=== PATIENT | female | born 1975 | race African-American/Black ===

== ENCOUNTER 2025-02-16 05:00 | Emergency (ER) | payer MEDICAID ==
[~2025-02-16] VITALS: Ht 170.2 cm; Wt 68.0 kg
[2025-02-16 05:12] VITALS: O2SAT 97
[2025-02-16 05:17] VITALS: BP 112/70; PULSE 68; RESP 19; TEMP 36.9; O2SAT 97
[2025-02-16] MEDS ORDERED: DIPHENHYDRAMINE 50MG CAPSULE PO ONE (06:15)
[2025-02-16] MEDS ORDERED: DIPH50CA41 MT (06:19)
[2025-02-16] MEDS ORDERED: P50 MT (06:19)
[2025-02-16] MEDS: DEXAMETHASONE 10 MG/ML VIAL IM ONE (06:30)
[2025-02-16] MEDS: DIPHENHYDRAMINE 25MG CAPSULE PO NR (06:31)
== END 2025-02-16 06:52 | disposition home or self-care (01) ==
LOC: ER 05:00
DX: L23.9 Allergic contact dermatitis, unspecified cause (principal); Z88.0 Allergy status to penicillin
CPT/HCPCS: 99283; 96372; Q0163; J1100

== ENCOUNTER 2025-08-07 08:06 | Emergency (ER) | payer MEDICAID ==
[~2025-08-07] VITALS: Ht 167.6 cm; Wt 66.0 kg
[~2025-08-07 08:06] MED LIST: DIPH50CA41 MT; P50 MT
[2025-08-07 08:09] VITALS: O2SAT 97
[2025-08-07 08:13] VITALS: BP 110/77; PULSE 86; RESP 18; TEMP 36.7; O2SAT 95
[2025-08-07] MEDS ORDERED: TOPUD PO (09:28)
[2025-08-07] MEDS ORDERED: IBUP-2028 MT (09:28)
[2025-08-07] MEDS ORDERED: ACETAMINOPHEN 325MG TABLET PO ONE (09:30)
[2025-08-07] MEDS ORDERED: IBUPROFEN 400MG TABLET PO ONE (09:30)
== END 2025-08-07 09:40 | disposition home or self-care (01) ==
LOC: ER 08:06
DX: M25.571 Pain in right ankle and joints of right foot (principal); Z79.899 Other long term (current) drug therapy; Z88.0 Allergy status to penicillin; W22.8XXA Striking against or struck by other objects, initial encounter; Y93.89 Activity, other specified; Y92.89 Other specified places as the place of occurrence of the external cause; Y99.8 Other external cause status
CPT/HCPCS: 99283; 73600; A6449

== ENCOUNTER 2025-11-24 16:05 | Emergency (ER) | payer MEDICAID ==
[~2025-11-24] VITALS: Ht 165.1 cm; Wt 68.0 kg
[~2025-11-24 16:05] MED LIST changes: +IBUP-2028 MT; +TOPUD PO
[2025-11-24 16:18] VITALS: O2SAT 99
[2025-11-24] MEDS: AZITHROMYCIN 500 MG TABLET PO ONE (18:25)
[2025-11-24] MEDS: IBUPROFEN 400MG TABLET PO ONE (18:26)
[2025-11-24] MEDS: PREDNISONE 20MG TABLET PO ONE (18:26)
[2025-11-24 18:32] VITALS: PULSE 80; RESP 18
[2025-11-24] MEDS: IPRATROPIUM/ALBUTEROL 0.5-3(2.5)MG/3ML NEB HHN ONE (18:32)
[2025-11-24 19:12] LABS: INFLUENZA TYPE A Presumptive Negative (Pres. Neg.)
[2025-11-24 19:13] LABS: INFLUENZA TYPE B Presumptive Negative (Pres. Neg.)
[2025-11-24] MEDS ORDERED: AZIT250T12 MT (19:39)
[2025-11-24] MEDS ORDERED: P50 MT (19:39)
[2025-11-24] MEDS ORDERED: GUAI237L83 MT (19:39)
[2025-11-24] MEDS ORDERED: ALBU18HF2 IH (19:39)
[2025-11-24 19:52] VITALS: BP 127/65; PULSE 89; RESP 14; TEMP 36.7; O2SAT 98
== END 2025-11-24 19:54 | disposition home or self-care (01) ==
LOC: ER 16:05
DX: J40 Bronchitis, not specified as acute or chronic (principal); Z79.52 Long term (current) use of systemic steroids; F17.200 Nicotine dependence, unspecified, uncomplicated; Z88.0 Allergy status to penicillin; Z20.822 Contact with and (suspected) exposure to COVID-19
CPT/HCPCS: 87804 ×2; 71045; 94640; 93005; 99284; 87426; J7512; Z7610 ×3; 94070